=== PATIENT | female | born 1990 | race Caucasian/White ===

== ENCOUNTER 2018-04-13 09:29 | Outpatient (CLI) | payer BC | END 2018-04-13 13:55 | disposition home or self-care (01) | LOC: OBT 09:29 → L-D 09:30 → OBT 13:55 | DX: O62.9 Abnormality of forces of labor, unspecified (principal); Z3A.40 40 weeks gestation of pregnancy | CPT/HCPCS: 76818 ==

== ENCOUNTER 2018-04-16 08:53 | Inpatient (IN) | payer BC ==
[2018-04-16] MEDS ORDERED: OXYTOCIN 30 UNITS/LR 500 ML IV (10:00)
[2018-04-16] MEDS ORDERED: CARBOPROST 250 MCG INJ IM (10:00)
[2018-04-16] MEDS ORDERED: MISOPROSTOL 200 MCG TAB PR (10:00)
[2018-04-16] MEDS ORDERED: METHYLERGONOVINE 0.2 MG INJ IM (10:00)
[2018-04-16 10:38] LABS: ADD UMIC YES; UR ASCORBIC ACID NEGATIVE (NEGATIVE); UR BACTERIA FEW /HPF (NONE SEEN); UR BILIRUBIN (Dip) NEGATIVE (NEGATIVE); UR BLOOD (Dip) NEGATIVE (NEGATIVE); UR CLARITY CLOUDY (CLEAR); UR COLOR YELLOW (YELLOW); UR GLUCOSE (Dip) NEGATIVE (NEGATIVE); UR KETONES (Dip) NEGATIVE (NEGATIVE); UR LEUKOCYTE ESTERASE (Dip) TRACE Leu/ul (NEGATIVE); UR NITRITE (Dip) NEGATIVE (NEGATIVE); UR RBC 1 /HPF (0-5); UR SPECIFIC GRAVITY (Dip) 1.009 (1.003-1.030); UR SQUAMOUS EPITHELIAL CELL MANY /HPF (FEW); UR TOTAL PROTEIN (Dip) NEGATIVE (NEGATIVE); UR UROBILINOGEN (Dip) NEGATIVE (NEGATIVE); UR WBC 10 /HPF (0-5)
[2018-04-16] MEDS: LACTATED RINGER'S 1,000 ML IV* ×3 (11:27→23:28)
[2018-04-16] MEDS: OXYTOCIN 30 UNITS/LR 500 ML IV (11:47)
[2018-04-16 11:53] LABS: ADD MAN DIFF? NO
[2018-04-16 11:58] LABS: BASOPHILS % 0.1 % (0.0-2.0); EOSINOPHILS % 0.2 % (0.0-7.0); HEMATOCRIT 38.1 % (37.0-47.0); HEMOGLOBIN 12.9 g/dl (12.0-16.0); LYMPHOCYTES # 2.4 10^3/ul (0.8-2.9); LYMPHOCYTES % 19.1 % (15.0-51.0); MEAN CORPUSCULAR HEMOGLOBIN 32.3 pg (29.0-33.0); MEAN CORPUSCULAR HGB CONC 33.9 g/dl (32.0-37.0); MEAN CORPUSCULAR VOLUME 95.5 fl (82.0-101.0); MEAN PLATELET VOLUME 10.6 fl (7.4-10.4); MONOCYTE # 0.8 10^3/ul (0.3-0.9); MONOCYTES % 6.1 % (0.0-11.0); NEUTROPHIL # 9.4 10^3/ul (1.6-7.5); NEUTROPHILS % 73.9 % (39.0-77.0); PLATELET COUNT 213 10^3/UL (140-415); RED BLOOD COUNT 3.99 10^6/ul (4.20-5.40)
[2018-04-16 11:58] LABS: WHITE BLOOD COUNT 12.7 10^3/ul (4.8-10.8)
[2018-04-16 12:25] LABS: INR 0.89; PARTIAL THROMBOPLASTIN TIME 26.9 Sec (23.0-35.0); PROTIME 12.1 Sec (11.9-14.9); PT RATIO 0.9
[2018-04-16 12:51] LABS: HEPATITIS B SURFACE ANTIGEN NEGATIVE (NEGATIVE)
[2018-04-16] MEDS: LIDOCAINE 0.5% (SDV) 50 ML INJ INFIL (14:36)
[2018-04-16] MEDS: LACTATED RINGER'S 250 ML IV (15:02)
[2018-04-16] MEDS: LACTATED RINGER'S 1,000 ML IV (15:16)
[2018-04-16] MEDS ORDERED: NALOXONE (0.4 MG/ML) INJ IV (16:00)
[2018-04-16] MEDS ORDERED: DIPHENHYDRAMINE 50 MG INJ IV (16:00)
[2018-04-16] MEDS ORDERED: KETOROLAC 30 MG INJ IV (16:00)
[2018-04-16] MEDS ORDERED: ONDANSETRON 4 MG INJ IV (16:00)
[2018-04-16] MEDS ORDERED: HYDROmorphONE 0.5 MG/0.5 ML SYG IV ×2 (16:00)
[2018-04-16 20:18] LABS: RAPID PLASMA REAGIN NONREACTIVE (NR)
[2018-04-17] MEDS: FENTAnyl 2MCG/ML-ROPIV 0.2% 100 ML BAG EPI ×2 (01:38→10:33)
[2018-04-17] MEDS: LACTATED RINGER'S 1,000 ML IV* (08:36)
[2018-04-17] MEDS: MINERAL OIL LIGHT 10 ML VIAL TOP (12:38)
[2018-04-17] MEDS: OXYTOCIN 30 UNITS/LR 500 ML IV ×4 (14:55→21:50)
[2018-04-17] MEDS ORDERED: IBUPROFEN 600 MG TAB (16:22)
[2018-04-17] MEDS: IBUPROFEN 600 MG TAB PO ×2 (16:34→23:12)
[2018-04-17] MEDS ORDERED: OXYTOCIN 30 UNITS/LR 500 ML IV (21:30)
[2018-04-17] MEDS ORDERED: METHYLERGONOVINE 0.2 MG INJ IM (21:30)
[2018-04-17] MEDS ORDERED: MISOPROSTOL 200 MCG TAB PR (21:30)
[2018-04-17] MEDS ORDERED: CARBOPROST 250 MCG INJ IM (21:30)
[2018-04-17] MEDS ORDERED: OXYCODONE/ASPIRIN (4.88/325) TAB PO ×2 (21:30)
[2018-04-17] MEDS ORDERED: ZOLPIDEM 5 MG TAB PO (21:30)
[2018-04-17] MEDS: WITCH HAZEL/GLYCERIN PAD PR (21:52)
[2018-04-17] MEDS: SENNA/DOCUSATE NA (8.6MG/50MG) TAB PO (21:52)
[2018-04-17] MEDS: BENZOCAINE 20% 56 ML SPRAY TOP (21:52)
[2018-04-18] MEDS: IBUPROFEN 600 MG TAB PO ×4 (05:40→23:26)
[2018-04-18 07:50] LABS: ADD MAN DIFF? NO
[2018-04-18 07:53] LABS: WHITE BLOOD COUNT 18.7 10^3/ul (4.8-10.8)
[2018-04-18 07:53] LABS: BASOPHILS % 0.2 % (0.0-2.0); EOSINOPHILS % 0.2 % (0.0-7.0); HEMATOCRIT 34.4 % (37.0-47.0); HEMOGLOBIN 11.6 g/dl (12.0-16.0); LYMPHOCYTES # 2.3 10^3/ul (0.8-2.9); LYMPHOCYTES % 12.5 % (15.0-51.0); MEAN CORPUSCULAR HEMOGLOBIN 32.8 pg (29.0-33.0); MEAN CORPUSCULAR HGB CONC 33.7 g/dl (32.0-37.0); MEAN CORPUSCULAR VOLUME 97.2 fl (82.0-101.0); MEAN PLATELET VOLUME 9.9 fl (7.4-10.4); MONOCYTE # 1.1 10^3/ul (0.3-0.9); NEUTROPHIL # 15.1 10^3/ul (1.6-7.5); NEUTROPHILS % 80.5 % (39.0-77.0); PLATELET COUNT 186 10^3/UL (140-415); RED BLOOD COUNT 3.54 10^6/ul (4.20-5.40); RED CELL DISTRIBUTION WIDTH 12.8 % (11.5-14.5)
[2018-04-18] MEDS: SENNA/DOCUSATE NA (8.6MG/50MG) TAB PO ×2 (08:46→21:14)
[2018-04-18] MEDS: INFLUENZA VIRUS VACCINE 0.5 ML (DISPENSING) IM* (10:00)
[2018-04-19] MEDS: IBUPROFEN 600 MG TAB PO ×3 (05:30→17:20)
[2018-04-19] MEDS: LANOLIN 7 GM TUBE TOP (05:30)
[2018-04-19 07:52] LABS: ADD MAN DIFF? NO
[2018-04-19 07:59] LABS: WHITE BLOOD COUNT 11.3 10^3/ul (4.8-10.8)
[2018-04-19 07:59] LABS: BASOPHILS % 0.2 % (0.0-2.0); EOSINOPHILS # 0.1 10^3/ul (0.0-0.5); EOSINOPHILS % 0.8 % (0.0-7.0); HEMATOCRIT 32.7 % (37.0-47.0); LYMPHOCYTES # 2.7 10^3/ul (0.8-2.9); LYMPHOCYTES % 24.4 % (15.0-51.0); MEAN CORPUSCULAR HEMOGLOBIN 32.3 pg (29.0-33.0); MEAN CORPUSCULAR HGB CONC 33.6 g/dl (32.0-37.0); MEAN CORPUSCULAR VOLUME 95.9 fl (82.0-101.0); MEAN PLATELET VOLUME 10.1 fl (7.4-10.4); MONOCYTE # 0.6 10^3/ul (0.3-0.9); MONOCYTES % 5.1 % (0.0-11.0); NEUTROPHIL # 7.8 10^3/ul (1.6-7.5); NEUTROPHILS % 69.1 % (39.0-77.0); PLATELET COUNT 201 10^3/UL (140-415); RED BLOOD COUNT 3.41 10^6/ul (4.20-5.40); RED CELL DISTRIBUTION WIDTH 12.9 % (11.5-14.5)
[2018-04-19] MEDS: SENNA/DOCUSATE NA (8.6MG/50MG) TAB PO (08:51)
[2018-04-19] MEDS: DIPHTH/TET/ACEL PERTUSS (ADULT) 0.5 ML VIAL IM* (11:39)
[2018-04-19] MEDS: IBUPROFEN 200 MG TAB PO (18:16)
== END 2018-04-19 20:45 | disposition home or self-care (01) | DRG 807 ==
LOC: OBT 08:53 → L-D 08:53 → PP1 04-17 17:59 → OBT 10:07 → L-D 10:00
PROC: 4A1HXCZ Monitoring of Products of Conception, Cardiac Rate, External Approach (ICD-10-PCS; 2018-04-16)
PROC: 10E0XZZ Delivery of Products of Conception, External Approach (ICD-10-PCS; principal; 2018-04-17)
DX: O48.0 Post-term pregnancy (principal); Z37.0 Single live birth; O76 Abnormality in fetal heart rate and rhythm complicating labor and delivery; O69.81X0 Labor and delivery complicated by cord around neck, without compression, not applicable or unspecified; Z3A.40 40 weeks gestation of pregnancy
CPT/HCPCS: 62319; 76815; 76818; 81001; 85025; 85610; 85730; 86592; 86850; 86900; 86901; 87086; 87340; 90686; 90715; 99464